=== PATIENT | female | born 1965 | race Caucasian/White ===

== ENCOUNTER 2021-05-23 11:48 | Emergency (ER) | payer OTHER, SELFPAY ==
[2021-05-23 12:21] VITALS: BP 137/76; PULSE 84; RESP 17; TEMP 36.9; O2SAT 98; BMI 20.7
--- NOTE | 2021-05-23 15:02 | ED.WOUNDLAC ---
HPI - Wound/Laceration General Chief Complaint: Wound/Laceration Stated Complaint: Hand lac- work inj Time Seen by Provider: 05/23/21 14:52 Source: patient Mode of arrival: ambulatory History of Present Illness HPI narrative: 56-year-old female with no significant past medical history presenting to the ED complaining of laceration to right palm s/p using utility knife at work [employer]. Denies injury to other area. Reports mild tingling. Denies numbness, weakness, fever. Reports tetanus up-to-date Onset (ago): hour(s) Related Data Allergies Allergy/AdvReac Type Severity Reaction Status Date / Time No Known Allergies Allergy Verified 05/23/21 15:01 Review of Systems Review of Systems: Constitutional: No Fever, No Chills, No Fatigue, No Malaise ENT/Mouth: No Ear Pain, No Nasal Congestion, No sore throat, No Rhinorrhea, No Swallowing Difficulty Eyes: No Eye Pain, No Swelling, No Redness Cardiovascular: No Chest Pain, No SOB, No Palpitations Respiratory: No Cough, No Sputum, No Dyspnea Gastrointestinal: No Nausea, No Vomiting, No Diarrhea, No Constipation, No Abdominal pain Musculoskeletal: No joint pain, No Myalgias, No Joint Swelling Skin: +lacereation, No rash Neuro: No Weakness, No Numbness, +tinglin Yes all other systems are reviewed and are negative [facility] Past Medical History Attestation statement: The following information was validated with the patient. Medical History No known health problems Social History Social History Advance Directives: No Advance Directives Information Provided: No Patient : No Physical Exam Vital Signs: Vital Signs: Last Vital Signs Temp 98.5 F 05/23/21 12:21 Pulse 84 05/23/21 12:21 Resp 17 05/23/21 12:21 BP 137/76 05/23/21 12:21 Pulse Ox 98 05/23/21 12:21 BMI result Body Mass Index 20.7 Const: General: cooperative, healthy appearing and no acute distress Orientation/consciousness: patient oriented x3 Limitations: no limitations HENMT: Head: Yes normal to inspection Ears: hearing grossly normal bilaterally General nose exam: Normal external nose present Face and sinus: Yes normal facial exam Eyes: General: appearance normal, both eyes and all related structures EOM: EOMs intact bilaterally Neck: Neck: Yes normal visual inspection and Yes no meningeal signs Resp: Effort & Inspection: normal respiratory effort and no respiratory distress Cardio: Rate: regular rate Peripheral pulses: ulnar radial pulses present and dorsalis pedis present Skin: Rashes: no rashes Neuro: General: patient oriented x3 and no meningeal signs Gait exam (Neuro): Normal gait present Extrem: Other: 1.5cm laceration noted to right thenar eminence. Superficial. Full range of motion intact to all digits. Neurovascularly intact. Sensation intact to light touch. Cap refill WNL MDM - Wound/Laceration MDM Narrative Medical decision making narrative: 56-year-old female with no significant past medical history presenting to the ED complaining of laceration to right palm s/p using utility knife at work [employer]. Tetanus up-to-date. Exam vital signs stable, 1.5 cm laceration noted to right palmar aspect, will repair with sutures. Differential Diagnosis Differential diagnosis: Likely laceration Medical Records Attestation: I reviewed the patient's medical records. Lab Data Attestation: I reviewed the patient's lab results. Procedures Laceration Laceration 1: Site: hand Side (If applicable): right Size (cm): 1.5 Description: flap Depth: simple, single layer Local Anesthetic: lidocaine 1% Amount of anesthesia used (mL): 5 Pre-repair: wound explored and irrigated extensively Skin layer closed with: nylon Size (cm): 4-0 Number of sutures: 3 Discharge Plan Discharge Clinical Impression: Hand laceration Patient Disposition: Home, Self-Care Instructions: Laceration (DC) Additional Instructions: Your wound was repaired with sutures today in the ED. Keep dry and clean. Please return to any emergency department or urgent care in 7-10 days to have them removed. Please follow-up with hand specialist in 3-5 days Pat dry, do not scrub If area begins to look infected, is red, there is drainage from the area please return to the emergency department Apply bacitracin or Neosporin at home. After sutures are removed apply anti scar cream like Mederma Referrals: ED Physician,Generic [Emergency Provider] - 1 week (7-10 days for suture removal) Clara Isbell MD [Physician] - 5 days
[2021-05-23] MEDS: Lidocaine HCl 1 % MPF 5 ML VIAL SUBCUT (15:08)
== END 2021-05-23 15:44 | disposition home or self-care (01) ==
PROVIDERS: Emergency Provider Emergency Medicine; PCP Family Medicine
DX: S61.411A Laceration without foreign body of right hand, initial encounter (principal); W27.8XXA Contact with other nonpowered hand tool, initial encounter; Y93.89 Activity, other specified; Y92.9 Unspecified place or not applicable; Y99.0 Civilian activity done for income or pay
CPT/HCPCS: 12001; 99283; 99284